=== PATIENT | female | born 1985 | race Caucasian/White ===

== ENCOUNTER 2017-11-15 06:53 | Day surgery (SDC) | payer OTHER ==
[~2017-11-15 06:53] MED LIST: CEFAZOLIN 2 GM/50 ML (PMX) 50 ML IVPB; SOD CHLORIDE 0.9% 1,000 ML IV
[2017-11-15] MEDS ORDERED: CEFAZOLIN 1 GM INJ (07:00)
[2017-11-15] MEDS ORDERED: PROPOFOL 20 ML (08:35)
[2017-11-15] MEDS ORDERED: MIDAZOLAM 1 MG/ML 2 ML INJ (08:35)
[2017-11-15] MEDS ORDERED: METOCLOPRAMIDE 10 MG INJ (08:36)
[2017-11-15] MEDS ORDERED: ONDANSETRON 4 MG INJ (08:36)
[2017-11-15] MEDS ORDERED: ROPIVACAINE 0.5 % 30 ML VIAL (08:36)
[2017-11-15] MEDS ORDERED: KETOROLAC 30 MG INJ (08:52)
[2017-11-15] MEDS ORDERED: ROCURONIUM 50 MG INJ (08:52)
[2017-11-15] MEDS ORDERED: NEOSTIGMINE 3 MG/3 ML SYRINGE (08:52)
[2017-11-15] MEDS ORDERED: PHENYLephrine (100 MCG/ML) 5ML SYG (08:53)
[2017-11-15] MEDS: BUPIVACAINE 0.25% (MPF) 30 ML INJ (09:26)
[2017-11-15] MEDS ORDERED: FENTAnyl 50 MCG/ML VIAL (09:28)
[2017-11-15] MEDS ORDERED: GLYCOPYRROLATE 0.4 MG INJ (09:28)
[2017-11-15] MEDS ORDERED: HYDROmorphONE (0.2 MG/ML) 10ML SYG IV (10:00)
[2017-11-15] MEDS ORDERED: ONDANSETRON 4 MG INJ IV (10:00)
[2017-11-15] MEDS ORDERED: OXYCODONE/ACETAMINOPHEN (5/325) TAB PO (10:00)
[2017-11-15] MEDS: HYDROmorphONE (0.2 MG/ML) 10ML SYG IV ×2 (10:10→10:22)
[2017-11-15] MEDS ORDERED: HYDROCODONE/APAP (5/325) TAB PO (10:30)
[2017-11-15] MEDS: OXYCODONE/ACETAMINOPHEN (5/325) TAB PO (11:06)
== END 2017-11-15 12:26 | disposition home or self-care (01) ==
LOC: SDS 06:53
DX: K80.10 Calculus of gallbladder with chronic cholecystitis without obstruction (principal)
CPT/HCPCS: 47562; 88304; 93005

== ENCOUNTER 2019-01-23 08:11 | Day surgery (SDC) | payer OTHER ==
[2019-01-23] MEDS ORDERED: LIDOCAINE 4% SOLUTION 50 ML BTL (09:05)
[2019-01-23] MEDS ORDERED: MIDAZOLAM 1 MG/ML 2 ML INJ ×2 (10:10)
[2019-01-23] MEDS ORDERED: FENTAnyl 50 MCG/ML VIAL (10:10)
== END 2019-01-23 13:31 | disposition home or self-care (01) ==
LOC: GIL 08:11
DX: K29.50 Unspecified chronic gastritis without bleeding (principal); K20.8 Other esophagitis
CPT/HCPCS: 43239; 84703; 88305; 88312